=== PATIENT | male | born 1965 | race Caucasian/White ===

== ENCOUNTER 2021-04-24 12:46 | Inpatient (IN) | payer BC ==
[2021-04-24 14:15] LABS: #Lymphocytes 0.7 thou/uL (1.20-3.40); #Monocytes 0.7 thou/uL (0.11-0.59); #Neutrophils 7.4 thou/uL (1.40-6.50); %Basophils 0.1 % (0.0-1.0); %Eosinophils 0.2 % (0.0-10.0); %Lymphocytes 8.4 % (21.0-51.0); %Monocytes 7.6 % (0.0-10.0); %Neutrophils 83.7 % (42.0-75.0); Hemoglobin 15.5 g/dL (14.0-18.0); Mean Corpuscular HGB CONC 34.3 g/dL (32.0-36.0); Mean Corpuscular Hemoglobin 29.9 pg (27.0-31.0); Mean Corpuscular Volume 87.2 fL (78.0-98.0); Mean Platelet Volume 7.6 fL (7.4-10.4); Platelet Count 186 thou/uL (130-400); RBC Distribution Width 12.2 % (11.5-14.5); White Blood Cell (WBC) Count 8.9 thou/uL (4.8-10.8)
[2021-04-24 14:41] LABS: ALT (SGPT) 24 U/L (8-55); AST (SGOT) 60 U/L (5-34); Albumin 3.8 g/dL (3.5-5.0); Alkaline Phosphatase 159 U/L (40-110); Anion Gap 11 mmol/L (10-20); BUN (Urea Nitrogen) 13 mg/dL (8.4-25.7); Bilirubin, Total 0.5 mg/dL (0.2-1.2); Calc. Creatinine Clearance 0 mL/min (70-130); Carbon Dioxide 27 mmol/L (22-29); Chloride 103 mmol/L (98-107); Globulin 3.1 g/dL (2.4-3.5); Glucose 204 mg/dL (70-105); Lipase 7 U/L (8-78); Potassium 4.5 mmol/L (3.5-5.1); Protein, Total 6.9 g/dL (6.0-8.3); Sodium 136 mmol/L (136-145)
[2021-04-24 14:44] LABS: Digoxin Less than 0.15 ng/mL (0.8-2.0)
[2021-04-24 15:02] LABS: CKMB 64.1 ng/mL (0-6.6)
[2021-04-24] MEDS ORDERED: Enoxaparin Sodium 100 MG/ML SYRINGE ONE (15:03)
[2021-04-24] MEDS ORDERED: Aspirin 325 MG TAB ONE (15:03)
[2021-04-24] MEDS ORDERED: Aspirin Chewable 81 MG TAB ONE (15:05)
[2021-04-24 16:07] LABS: Magnesium 1.8 mg/dL (1.6-2.6)
[2021-04-24] MEDS ORDERED: HumaLOG 300 UNITS/3 ML VIAL SC PRN ×2 (17:33)
[2021-04-24] MEDS ORDERED: Dextrose 5% in Water 1,000 ML IV PRN (17:33)
[2021-04-24] MEDS ORDERED: Dextrose 50% Abboject 50 ML SYRINGE SLOW IVP PRN (17:33)
[2021-04-24 19:05] VITALS: BMI 37.4
[2021-04-24 19:30] LABS: Magnesium 1.7 mg/dL (1.6-2.6)
[2021-04-24] MEDS ORDERED: Magnesium 2 GM/50 ML 2 GM in Premix Bag 1 BAG IVPB SCH (19:45)
[2021-04-24 19:47] LABS: Troponin I 32.001 ng/mL (< 0.028)
[2021-04-24] MEDS ORDERED: Atorvastatin Calcium 40 MG TAB PO SCH (21:00)
[2021-04-24 21:35] LABS: Troponin I 44.126 ng/mL (< 0.028)
[2021-04-25] MEDS ORDERED: Enoxaparin Sodium 100 MG/ML SYRINGE SC SCH ×2 (03:00→17:00)
[2021-04-25 05:11] LABS: Cardiac Risk 5.4 (Less than 4.5)
[2021-04-25] MEDS ORDERED: Verapamil 5 MG/2 ML VIAL ONE (06:36)
[2021-04-25] MEDS ORDERED: Heparin 10,000 UNITS/ 10 ML VIAL ONE (06:36)
[2021-04-25] MEDS ORDERED: Lidocaine 1% (PF) 30 ML VIAL ONE (06:37)
[2021-04-25] MEDS ORDERED: Nitroglycerin 100MG/250ML BOT 250 ML ONE (06:37)
[2021-04-25 07:24] LABS: SARS-CoV-2 NAA Rapid Test Not Detected (NotDetected)
[2021-04-25 07:30] LABS: INR-International Normal Ratio 1.1; PTT 44.8 sec (22.9-36.1); Prothrombin Time 14.3 sec (12.0-14.7)
[2021-04-25] MEDS ORDERED: Midazolam HCl 2 mg/2 ml Vial ONE (07:34)
[2021-04-25] MEDS ORDERED: Fentanyl 100 MCG/2 ML VIAL ONE (07:34)
[2021-04-25 07:42] LABS: Anion Gap 12 mmol/L (10-20); BUN (Urea Nitrogen) 11 mg/dL (8.4-25.7); Calc. Creatinine Clearance 118 mL/min (70-130); Calcium 8.9 mg/dL (7.8-10.44); Carbon Dioxide 24 mmol/L (22-29); Chloride 107 mmol/L (98-107); Glucose 138 mg/dL (70-105); Potassium 4.2 mmol/L (3.5-5.1); Sodium 139 mmol/L (136-145)
[2021-04-25] MEDS: Communication Order-Pharmacy FS SCH (07:46)
[2021-04-25 07:51] LABS: Eosinophils 3 % (0-10); Hemoglobin 14.3 g/dL (14.0-18.0); Lymphocytes 32 % (21-51); MDiff Complete? YES; Mean Corpuscular Hemoglobin 31.1 pg (27.0-31.0); Mean Corpuscular Volume 88.7 fL (78.0-98.0); Mean Platelet Volume 7.7 fL (7.4-10.4); Monocytes 6 % (0-10); Neutrophil 59 % (42-75); Nucleated RBC 1 % (0); Platelet Count 156 thou/uL (130-400); RBC Distribution Width 12.3 % (11.5-14.5); White Blood Cell (WBC) Count 6.4 thou/uL (4.8-10.8)
[2021-04-25] MEDS ORDERED: Aggrastat 12.5 MG/250 ML 250 ML ONE (08:53)
[2021-04-25] MEDS ORDERED: Sodium Chloride 0.9% 200 ML IV PRN (08:56)
[2021-04-25] MEDS ORDERED: Acetaminophen/Codeine 30-300mg Tablet PO PRN ×2 (08:56)
[2021-04-25] MEDS ORDERED: Nitroglycerin 0.4 MG TAB (25 Tab Bottle) SL PRN (08:56)
[2021-04-25] MEDS ORDERED: FLU VACC QS2021-22(6MOS UP)/PF 60 MCG/0.5 ML SYRINGE IM ONE (09:00)
[2021-04-25] MEDS ORDERED: Prevnar 13-Val Conj/PF 0.5 ML SYRINGE IM ONE (09:00)
[2021-04-25] MEDS ORDERED: Iopamidol 370 76% 100 ML VIAL ONE (09:10)
[2021-04-25] MEDS ORDERED: Iopamidol 370 76% 50 ML VIAL FS ONE (09:10)
[2021-04-25] MEDS: Aspirin Chewable 81 MG TAB PO SCH (09:20)
[2021-04-25] MEDS: Lisinopril 2.5 MG TAB PO SCH (09:20)
[2021-04-25 10:37] LABS: Troponin I 35.392 ng/mL (< 0.028)
[2021-04-25 15:08] LABS: #Eosinphils 0.1 thou/uL (0.0-0.7); #Lymphocytes 1.5 thou/uL (1.20-3.40); #Monocytes 0.8 thou/uL (0.11-0.59); #Neutrophils 3.1 thou/uL (1.40-6.50); %Basophils 0.3 % (0.0-1.0); %Eosinophils 1.6 % (0.0-10.0); %Lymphocytes 27.5 % (21.0-51.0); %Monocytes 14.8 % (0.0-10.0); %Neutrophils 55.8 % (42.0-75.0); Hemoglobin 13.7 g/dL (14.0-18.0); Mean Corpuscular HGB CONC 34.7 g/dL (32.0-36.0); Mean Corpuscular Hemoglobin 30.9 pg (27.0-31.0); Mean Corpuscular Volume 89.1 fL (78.0-98.0); Mean Platelet Volume 7.9 fL (7.4-10.4); Platelet Count 150 thou/uL (130-400); RBC Distribution Width 12.2 % (11.5-14.5); Red Blood Cell (RBC) Count 4.43 mill/uL (4.70-6.10); White Blood Cell (WBC) Count 5.6 thou/uL (4.8-10.8)
[2021-04-25] MEDS: Atorvastatin Calcium 40 MG TAB PO SCH (21:34)
[2021-04-25] MEDS: Aggrastat 12.5 MG/250 ML 250 ML IVPB SCH (21:35)
[2021-04-25] MEDS: Enoxaparin Sodium 100 MG/ML SYRINGE SC SCH (21:50)
[2021-04-26 06:46] LABS: Hemoglobin 15.3 g/dL (14.0-18.0); Platelet Count 93 thou/uL (130-400)
[2021-04-26] MEDS: Communication Order-Pharmacy FS SCH (07:00)
[2021-04-26] MEDS: Aspirin Chewable 81 MG TAB PO SCH (09:08)
[2021-04-26] MEDS: Lisinopril 2.5 MG TAB PO SCH (09:08)
[2021-04-26] MEDS: Enoxaparin Sodium 100 MG/ML SYRINGE SC SCH (09:09)
[2021-04-26] MEDS: Aggrastat 12.5 MG/250 ML 250 ML IVPB SCH (10:11)
[2021-04-26] MEDS ORDERED: Enoxaparin Sodium 100 MG/ML SYRINGE SC SCH ×3 (11:30→21:00)
[2021-04-26 17:34] LABS: Troponin I 9.149 ng/mL (< 0.028)
[2021-04-26] MEDS: Rivaroxaban 2.5 MG TAB PO SCH (22:02)
[2021-04-26] MEDS: Atorvastatin Calcium 40 MG TAB PO SCH (22:02)
[2021-04-27 05:21] LABS: Hemoglobin 13.9 g/dL (14.0-18.0); Mean Corpuscular HGB CONC 35.1 g/dL (32.0-36.0); Mean Corpuscular Hemoglobin 31.1 pg (27.0-31.0); Mean Corpuscular Volume 88.6 fL (78.0-98.0); Mean Platelet Volume 7.7 fL (7.4-10.4); Platelet Count 145 thou/uL (130-400); RBC Distribution Width 12.1 % (11.5-14.5); Red Blood Cell (RBC) Count 4.48 mill/uL (4.70-6.10); White Blood Cell (WBC) Count 5.4 thou/uL (4.8-10.8)
[2021-04-27 05:41] LABS: ALT (SGPT) 18 U/L (8-55); AST (SGOT) 30 U/L (5-34); Albumin 3.2 g/dL (3.5-5.0); Alkaline Phosphatase 119 U/L (40-110); Anion Gap 13 mmol/L (10-20); BUN (Urea Nitrogen) 11 mg/dL (8.4-25.7); Bilirubin, Total 0.8 mg/dL (0.2-1.2); Calc. Creatinine Clearance 130 mL/min (70-130); Calcium 8.5 mg/dL (7.8-10.44); Carbon Dioxide 24 mmol/L (22-29); Chloride 105 mmol/L (98-107); Globulin 2.5 g/dL (2.4-3.5); Glucose 116 mg/dL (70-105); Magnesium 1.7 mg/dL (1.6-2.6); Phosphorus 3.6 mg/dL (2.3-4.7); Potassium 3.9 mmol/L (3.5-5.1); Protein, Total 5.7 g/dL (6.0-8.3); Sodium 138 mmol/L (136-145)
[2021-04-27 06:02] LABS: Eosinophils 4 % (0-10); Lymphocytes 33 % (21-51); MDiff Complete? YES; Monocytes 10 % (0-10); Neutrophil 52 % (42-75); Reactive Lymphocytes 1 % (0-10)
[2021-04-27] MEDS ORDERED: Empagliflozin 10 MG TAB PO SCH (09:00)
[2021-04-27] MEDS ORDERED: Clopidogrel Bisulfate 75 MG TAB PO SCH (09:00)
[2021-04-27] MEDS: Rivaroxaban 2.5 MG TAB PO SCH (09:16)
[2021-04-27] MEDS: Lisinopril 2.5 MG TAB PO SCH (09:16)
[2021-04-27] MEDS: Aspirin Chewable 81 MG TAB PO SCH (09:17)
[2021-04-27] MEDS ORDERED: Magnesium Sulfate 3 GM in Sodium Chloride 0.9% 100 ML IVPB SCH (10:00)
[2021-04-27] MEDS: Communication Order-Pharmacy FS SCH (10:13)
[2021-04-27] MEDS ORDERED: Enoxaparin Sodium 100 MG/ML SYRINGE SC SCH ×2 (10:15→10:45)
[2021-04-27 15:55] VITALS: BP 158/81; TEMP 97.8
== END 2021-04-27 15:20 | disposition home or self-care (01) | DRG 281 ==
LOC: ERS 12:46 → 2NO 16:30
PROVIDERS: ADMIT Internal Medicine; ATTEND Internal Medicine
PROC: 4A023N7 Measurement of Cardiac Sampling and Pressure, Left Heart, Percutaneous Approach (ICD-10-PCS; principal; 2021-04-25)
PROC: B2111ZZ Fluoroscopy of Multiple Coronary Arteries using Low Osmolar Contrast (ICD-10-PCS; 2021-04-25)
PROC: B2151ZZ Fluoroscopy of Left Heart using Low Osmolar Contrast (ICD-10-PCS; 2021-04-25)
DX: I21.4 Non-ST elevation (NSTEMI) myocardial infarction (principal); I47.2 Ventricular tachycardia; E78.5 Hyperlipidemia, unspecified; I25.10 Atherosclerotic heart disease of native coronary artery without angina pectoris; Z20.822 Contact with and (suspected) exposure to COVID-19; R00.1 Bradycardia, unspecified; E66.9 Obesity, unspecified; E83.42 Hypomagnesemia; D69.6 Thrombocytopenia, unspecified; E11.22 Type 2 diabetes mellitus with diabetic chronic kidney disease; N18.2 Chronic kidney disease, stage 2 (mild); I12.9 Hypertensive chronic kidney disease with stage 1 through stage 4 chronic kidney disease, or unspecified chronic kidney disease; I16.0 Hypertensive urgency; E78.00 Pure hypercholesterolemia, unspecified; Z79.82 Long term (current) use of aspirin; Z79.02 Long term (current) use of antithrombotics/antiplatelets; Z79.899 Other long term (current) drug therapy; Z88.0 Allergy status to penicillin; Z68.37 Body mass index [BMI] 37.0-37.9, adult; Z98.84 Bariatric surgery status; Z87.442 Personal history of urinary calculi; Z79.4 Long term (current) use of insulin
CPT/HCPCS: 36415; 36416; 37212; 71045; 80048; 80053; 80061; 80162; 82553; 83036; 83690; 83735; 83880; 84100; 84443; 84484; 85014; 85018; 85025; 85049; 85610; 85730; 93005; 93010; 93306; 93458; 93567; 93798; 94760; 96372; 97139; 99152; 99153; J1644; J1650; J2001; J2250; J3010; J3246; J3475; J3490; Q9967; U0002; U0003; U0005